=== PATIENT | male | born 1975 | race African-American/Black ===

== ENCOUNTER 2016-08-29 18:15 | Emergency (ER) | payer BC ==
--- NOTE | ~2016-08-29 | CT71 ---
[facility] A Service [facility] RADIOLOGY TEXT RESULTS PATIENT: KENY GUTIERREZ LOCATION: SED : [birth year] UNIT #: [id number] AGE: [address]: Margy Jaquez SEX: M ORDER DR: [id number] [address] [address] [id number] E MR#: [id number] #: [id number] NAME: KENY GUTIERREZ : 1975 SEX: M STUDY DATE/TIME: 08/29/2016 19:13 UNIT: SED ROOM: STUDY DESCRIPTION: CT Head Wo Contrast Attending Physician: Margy Jaquez Pa-C Ordering Physician: Margy Jaquez Pa-C MEDICAL IMAGING REPORT This report is preliminary unless electronic signature is present. EXAM CT head without contrast 08/29/2016 HISTORY 41-year-old male with headache for 6 months. Dizziness. COMPARISON STUDIES CT head 02/13/2016. TECHNIQUE Routine unenhanced axial images performed through the brain. This CT exam was performed with one or more of the following radiation dose reduction techniques: automatic exposure control, adjustment of mA and/or kV according to patient size, and iterative reconstruction. FINDINGS No hemorrhage, acute infarction, mass lesion, or abnormal extraaxial fluid collection. No midline shift or focal mass effect. Ventricular system is normal in size and configuration. No acute bony abnormality. Visualized paranasal sinuses and mastoid air cells are clear. IMPRESSION No acute intracranial abnormality. Dictated by... Richard Zuniga M.D. THIS IS AN ELECTRONICALLY VERIFIED REPORT Richard Zuniga M.D. at 08/29/2016 10:55 PM [facility] A Service [facility] RADIOLOGY TEXT RESULTS PATIENT: KENY GUTIERREZ LOCATION: SED : [birth year] UNIT #: [id number] AGE: [address]: Margy Jaquez SEX: M ORDER DR: BETH/colin TD: 08/29/2016 22:03 JOB #: [id number] MEDICAL IMAGING REPORT Page 1 of 1
[2016-08-29] MEDS ORDERED: NO MEDICATIONS (18:19)
== END 2016-08-29 20:39 | disposition home or self-care (01) ==
LOC: SED 18:15
DX: R51 Headache (principal); H53.8 Other visual disturbances; F17.210 Nicotine dependence, cigarettes, uncomplicated; Z98.890 Other specified postprocedural states
CPT/HCPCS: 70450; 96372; 99284; J1885

== ENCOUNTER 2016-08-30 16:17 | Emergency (ER) | payer BC ==
--- NOTE | ~2016-08-30 | EKG ---
PATIENT: KENY GUTIERREZ UNIT #: [id number] Ventricular Rate: 56 BPM Atrial Rate: 56 BPM P-R Interval: 166 ms QRS Duration: 106 ms Q-T Interval: 412 ms QTC Calculation(Bezet): 397 ms P [place]: 33 degrees Calculated R [place]: 47 degrees Calculated T [place]: 25 degrees Diagnosis Line: Sinus bradycardia Diagnosis Line: Moderate voltage criteria for LVH, may be normal Diagnosis Line: variant Diagnosis Line: ST elevation, consider early repolarization Diagnosis Line: Borderline ECG Diagnosis Line: No previous ECGs available Diagnosis Line: Confirmed by ANNA BHATT MD ([id number]) on 08/31/2016 Diagnosis Line: 8:03:28 PM INTERPRETING MD: MILLER HAMPTON
--- NOTE | ~2016-08-30 | CR58 ---
[facility] A Service [facility] RADIOLOGY TEXT RESULTS PATIENT: KENY GUTIERREZ LOCATION: [facility] : [birth year] UNIT #: [id number] AGE: [address]: Damian Dawson MD SEX: M ORDER DR: [id number] [place] [id number] [facility]. [place], [place] [address] [id number] E MR#: [id number] Acc #: [id number] NAME: KENY GUTIERREZ : 1975 SEX: M STUDY DATE/TIME: 08/30/2016 17:10 UNIT: [facility] ROOM: STUDY DESCRIPTION: CR Cervical Spine 2 or 3 Views Attending Physician: Damian Dawson M.D. Ordering Physician: Damian Dawson M.D. Primary Care Physician: No Primary Care Physician MEDICAL IMAGING REPORT This report is preliminary unless electronic signature is present EXAM Cervical spine series. HISTORY Left arm tingling with dizziness, lightheadedness and facial tingling chronically over the past 7 months. TECHNIQUE 3 views of the cervical spine were obtained. FINDINGS AP and lateral projections of the cervical spine show satisfactory preservation of the cervical lordosis. The cervical soft tissues are normal. All anterior and posterior elements in the cervical area are anatomically normal without identifiable fracture, dislocation, malignant lytic or sclerotic change, or arthritis. There is no congenital defect apparent. IMPRESSION Normal cervical spine. Dictated by... Elio Kaye M.D. THIS IS AN ELECTRONICALLY VERIFIED REPORT Elio Kaye M.D. at 08/31/2016 10:03 AM POOJA/mariama TD: 08/31/2016 00:45 [facility] A Service [facility] RADIOLOGY TEXT RESULTS PATIENT: KENY GUTIERREZ LOCATION: [facility] : [birth year] UNIT #: [id number] AGE: [address]: Damian Dawson MD SEX: M ORDER DR: SHELLY #: [id number] MEDICAL IMAGING REPORT Page 1 of 1 COPY
[~2016-08-30 16:17] MED LIST: NO MEDICATIONS
[2016-08-30 17:33] LABS: BASOPHIL# 0.1 X10e3 (0-0.3); BASOPHIL% 1.1 % (0-2.5); EOSINOPHIL# 0.3 X10e3 (0-0.7); EOSINOPHIL% 4.2 % (0.0-7.0); HEMATOCRIT 42.5 % (38.0-50.0); HEMOGLOBIN 13.6 gm/dL (13.0-16.0); LYMPHOCYTE# 3.7 X10e3 (1.0-3.5); LYMPHOCYTE% 50.7 % (17.0-45.0); MEAN CELL VOLUME 88.7 FL (83-96); MEAN CORPUSCULAR HEMOGLOBIN 28.4 PG (28-34); MEAN PLATELET VOLUME 8.1 FL (6.5-11.5); MONOCYTE# 0.5 X10e3 (0-1.0); MONOCYTE% 6.9 % (3.0-12.0); NEUTROPHIL# 2.7 X10e3 (1.5-7.1); NEUTROPHIL% 37.1 % (40-75); PLATELET COUNT 215 X10e3 (140-420); RED BLOOD COUNT 4.79 X10e (3.90-5.60); RED CELL DISTRIBUTION WIDTH 13.6 % (11.0-15.5); WHITE BLOOD COUNT 7.2 X10e3 (4.0-10.5)
[2016-08-30 17:36] LABS: DIFF IND YES
[2016-08-30 17:52] LABS: ALBUMIN SERUM 3.9 g/dL (3.5-5.0); ALKALINE PHOSPHATASE 45 U/L (32-92); ALT (SGPT) 28 U/L (10-40); AST (SGOT) 24 U/L (10-42); BILIRUBIN,TOTAL 0.5 mg/dL (0.2-2.0); BLOOD UREA NITROGEN 20 mg/dL (9-23); CALCIUM SERUM 8.8 mg/dL (8.4-10.2); CARBON DIOXIDE 30 mmol/L (22-31); CHLORIDE 104 mmol/L (100-111); GLOM FILT RATE Estimated 108.6 mL/min (>60); GLUCOSE FASTING 101 mg/dL (70-110); POTASSIUM 4.2 mmol/L (3.5-5.1); PROTEIN TOTAL SERUM 6.6 g/dL (6.0-8.3); SODIUM 139 mmol/L (135-145)
[2016-08-30 17:55] LABS: BILIRUBIN, DIRECT <0.1 mg/dL (0.0-0.2); BILIRUBIN,INDIRECT 0.4 mg/dL (0.0-0.9)
[2016-08-30 18:06] LABS: ANISOCYTOSIS SL; PLATELET ESTIMATE NORMAL (NORMAL)
== END 2016-08-30 19:04 | disposition home or self-care (01) ==
LOC: CED 16:17
PROVIDERS: Emergency Medicine
DX: R51 Headache (principal); R20.2 Paresthesia of skin; F17.200 Nicotine dependence, unspecified, uncomplicated
CPT/HCPCS: 36415; 72040; 80048; 80076; 85025; 93005; 96361; 96374; 96375; 99284; J0780; J1200; J1885